=== PATIENT | female | born 1990 | race American Indian/Alaskan Native ===

== ENCOUNTER 2016-12-09 23:31 | Emergency (ER) | payer BC ==
[2016-12-10] MEDS ORDERED: MOTRIN PO ONE (03:44)
--- NOTE | 2016-12-10 03:48 | Emergency Department Report ---
HPI - General Chief Complaint: Extremity Injury, Upper Time Seen by Provider: 12/10/16 03:30 - HPI HPI: Patient is a 26-year-old female who presents to ED complaining of right index finger pain and swelling 1 week. Patient states index finger began slight swell and has gotten slightly bigger in the past week. Patient states pain with trying to move finger. Patient denies any pus collection or drainage or Trauma to the finger. Patient admits to sometimes biting finger nails. Patient denies fevers/chills/nausea/vomiting/shortness of breath/chest pain. ED Past Medical Hx - Past Medical History Previous Medical History?: No - Surgical History Past Surgical History?: No - Social History Smoking Status: Never Smoker Substance Use Type: None - Medications Home Medications: Home Medications Medication Instructions Recorded Confirmed Last Taken Type Amoxicillin/K Clav Tab [Augmentin 1 tab PO Q12HR #14 tab 12/10/16 Unknown Rx 875 mg] Ibuprofen [Motrin 800 MG tab] 800 mg PO Q8HR PRN #30 tablet 12/10/16 Unknown Rx ED Review of Systems ROS: Stated complaint: RT FINGER SWOLLEN Other details as noted in HPI Constitutional: denies: chills, fever, weakness Eyes: denies: eye pain, eye discharge, vision change ENT: denies: ear pain, throat pain, congestion Respiratory: denies: cough, shortness of breath, wheezing Cardiovascular: denies: chest pain, palpitations Endocrine: no symptoms reported Gastrointestinal: denies: abdominal pain, nausea, vomiting, diarrhea, constipation, hematemesis, melena Genitourinary: denies: urgency, dysuria, discharge Musculoskeletal: denies: back pain, joint swelling, arthralgia Skin: other (right index fingertip pain and swelling). denies: rash, lesions Neurological: denies: headache, weakness, paresthesias Psychiatric: denies: anxiety, depression Hematological/Lymphatic: denies: easy bleeding, easy bruising Physical Exam - Physical Exam Vital Signs: Vital Signs 12/10/16 00:29 Temperature 98.7 F Pulse Rate 78 Respiratory 18 Rate Blood Pressure 128/89 O2 Sat by Pulse 100 Oximetry Physical Exam: GENERAL: Alert and oriented x3, no apparent distress, Normal Gait, atraumatic. HEAD: Head is normocephalic and a-traumatic. EYES: Extra ocular muscles are intact. Pupils are equal, round, and reactive to light and accommodation. NECK: Supple. Non edematous, No carotid bruits. No lymphadenopathy or thyromegaly. LUNGS: Symetrical with respiration, No wheezing, no rales or crackles, CTAB. HEART: S1, S2 present, regular rate and rhythm without murmur, no rubs, no gallops. ABDOMEN: No organomegaly was noted,Positive bowel sounds, soft, and non- distended. . Nontender to palpation on all Quadrants, NO CVA tenderness. EXTREMITIES/MUSCULOSKELETAL: No cyanosis, clubbing, rash, lesions or edema. Full ROM bilaterally. UE/LE Pulses 2+ bilaterally. LE and UE 5+ strength bilaterally. FINGER: No loss of sensation, tender to palpation of index tip. Non flattulance. non edematous. no pus drainage. mildly swollen at lateral aspect of fingertip NEUROLOGIC: No focal Deficit, Cranial nerves II through XII are grossly intact. No loss of sensation, No facial droop SKIN: Warm and dry, No lesions, No ulceration or induration present. ED Course Vital Signs 12/10/16 00:29 Temperature 98.7 F Pulse Rate 78 Respiratory 18 Rate Blood Pressure 128/89 O2 Sat by Pulse 100 Oximetry ED Medical Decision Making - Medical Decision Making 26-year-old female presents with paronychia. ED course: Patient received 800 mg of Motrin one tablet in ED. Vital signs stable, She is in no distress. Discussed with patient antibiotic therapy as well as heat compressions or warm water and vinegar soak. Discussed to read instructions as given. Discussed the patient to follow-up with primary care physician has referred. Critical care attestation.: If time is entered above; I have spent that time in minutes in the direct care of this critically ill patient, excluding procedure time. ED Disposition Clinical Impression: Paronychia of finger of right hand Disposition: DISCHARGED TO HOME OR SELFCARE Is pt being admited?: No Does the pt Need Aspirin: No Condition: Stable Instructions: Paronychia (ED) Prescriptions: Amoxicillin/K Clav Tab [Augmentin 875 mg] 1 tab PO Q12HR #14 tab Ibuprofen [Motrin 800 MG tab] 800 mg PO Q8HR PRN #30 tablet PRN Reason: Pain Referrals: PRIMARY CARE, [Primary Care Provider] - 3-5 Days [facility] [Outside] - 3-5 Days [facility] [Outside] - 3-5 Days [facility] [Outside] - 3-5 Days [facility] [Outside] - 3-5 Days Forms: Accompanied Note, Work/School Release Form(ED) Time of Disposition: 04:00
[2016-12-10 04:30] VITALS: BP 119/83
== END 2016-12-10 04:29 | disposition home or self-care (01) ==
LOC: ED 23:31
DX: L03.011 Cellulitis of right finger (principal)
CPT/HCPCS: 99282